=== PATIENT | female | born 1940 | race Caucasian/White ===

== ENCOUNTER 2016-10-09 14:10 | Emergency (ER) | payer MEDICARE, OTHER ==
[2016-10-09 14:05] VITALS: BP 119/54; PULSE 62; RESP 16; O2SAT 98
[~2016-10-09 14:10] MED LIST: ASPI-973 PO; ATOR20TA PO; CHOL10008 PO; HYDR12.55 PO; INSU100I13 SUBQ; LISI40TA PO; LORA0.5T PO; QUET25TA73 PO
--- NOTE | 2016-10-09 14:16 | ED.REPORT ---
HPI-General Illness Date of Service Oct 09, 2016 ED Provider: Ricky Gutierrez MD The patient is a 76 year old female with history of hypertension, hyperlipidemia , prior stroke, diabetes mellitus, and dementia, who was brought to the emergency department by EMS for agitated behavior. The patient has history of dementia and has recently been doing relatively well. Her family was able to take her our of the care facility in March because of how well she has been doing. Today she suddenly became very angry with her and started screaming and yelling at him. Her is unsure what she was upset about. The patient denies any physical complaints at this time. She has a history of similar outbursts and anger in the past thought related to her dementia. The states that he does not want her placed in a care facility but did not know what to do today because she was so upset. She has not had any recent head trauma or falling. She has not had any fevers or urinary symptoms. History is quite limited from the patient as she is demented. Nursing Notes Stated Complaint: DEMENTIA Chief Complaint: General Complaint Nursing Notes Reviewed: Yes Allergies: Coded Allergies: No Known Allergies (Verified , 11/10/15) Scheduled Aspirin (Aspirin) 81 Mg Tablet 81 MG PO DAILY Atorvastatin (Lipitor) 20 Mg Tablet 20 MG PO HS Cholecalciferol (Vitamin D3) (Vitamin D3) 1,000 Unit Tab.chew 1,000 UNIT PO DAILY Hydrochlorothiazide (Hydrochlorothiazide) 12.5 Mg Tablet 12.5 MG PO DAILY Insulin Glargine (Lantus U100 Solostar Insulin Pen) 100 Unit/1 Ml Insuln.pen 14 UNIT SUBQ DAILY Lisinopril (Lisinopril) 40 Mg Tablet 40 MG PO DAILY Quetiapine Fumarate (Quetiapine Fumarate) 25 Mg Tablet 12.5 MG PO HS Scheduled PRN Lorazepam (Lorazepam) 0.5 Mg Tablet 0.5 MG PO BID PRN PRN For Anxiety General Time Seen by MD: 14:12 Chief Complaint Altered mental status Hx Obtained From: Patient, Spouse, EMS Arrived By: Ambulance Sudden in Onset?: Yes Onset Occurred: 1 - 4 hours ago Symptom Duration: Since onset Severity: Current: No pain currently Severity: Maximum: No pain Recent Healthcare: No recent hospitalization Past Medical History Past Medical History Notes: Echocardiogram: Mild aortic regurgitation with EF 75-80% Past Medical History Breast cancer Alzheimer Dementia Reports: Diabetes mellitus, Hyperlipidemia, Hypertension, Stroke Past Surgical History mastectomy Resection of some type of abdominal cancer Reports: Appendectomy, Cholecystectomy, Hysterectomy Smoking History Never Smoker Social History Alcohol Use: Denies alcohol use Drug Use: Denies drug use Other Social History: Ambulatory Status Independent Review of Systems Full Review of Systems Constitutional: Denies: Chills, Fever Ears / Nose / Throat: Denies: Sore throat Respiratory: Denies: Non-productive cough, Shortness of breath Cardiovascular: Denies: Chest pain GI: Denies: Abdominal pain, Diarrhea, Nausea, Vomiting Psychiatric: Reports: Agitation, Change mental status Complete sys rev & neg: except as marked. Physical Exam Vital Signs Vital Signs Date Time Temp Pulse Resp B/P Pulse Ox O2 Delivery O2 Flow Rate FiO2 10/09/16 17:30 36.9 88 16 136/72 98 Room Air 10/09/16 14:05 37.1 62 16 119/54 98 Room Air Initial VS: Reviewed Skin: Warm, Dry, No cyanosis Psychiatric: Mood/affect normal, Behavior normal General/Constitutional: Awake, Alert, Cooperative Head / Eyes: Atraumatic, Normocephalic, PERRL, EOMI ENT: Atraumatic, Airway patent, Mucous membranes moist Neck: Atraumatic, Supple, Full range of motion, No swelling, Non-tender, No midline vertebral tend Respiratory / Chest: Atraumatic, Breath sounds NL, Breath sounds = bilat, No respiratory distress, No rales, No rhonchi, No wheezing Cardiovascular: Heart rate NL, Regular rhythm, Heart sounds NL, No murmurs, No rubs Abdomen: Atraumatic, Soft, Non-tender, No guarding, No rebound, BS normoactive , No distention Back: Atraumatic, Inspection NL, No midline vertebral tend Upper Extremities Upper Extremity / MS: No deformity, Neurologic intact, Vascular intact Lower Extremity / Pelvis / MS: No deformity, Neurologic intact, Vascular intact Neurologic: Speech NL, No motor deficits, No sensory deficits Mental Status: Positive: Disoriented to place, Disoriented to time Interpretation & Diagnostics Lab Results Interpretation Test 10/09/16 16:29 Urine Color Yellow (YELLOW) Urine Appearance Hazy (CLEAR,HAZY) Urine pH 5.5 (5.0-8.0) Urine Specific [place] 1.030 (1.003-1.035) Urine Protein Negativemg/dL (NEG,TRACE) Urine Glucose (UA) Negativemg/dL (NEGATIVE) Urine Ketones Negativemg/dL (NEGATIVE) Urine Occult Blood Negative (NEGATIVE) Urine Nitrite Negative (NEGATIVE) Urine Bilirubin Negative (NEGATIVE) Urine Urobilinogen 1.0mg/dL (NORMAL) Urine Leukocyte Esterase Small (NEGATIVE) Urine RBC 0-2/hpf (0-2) Urine WBC 0-5/hpf (0-5) Urine Epithelial Cells Many/hpf (NONE-MOD) Urine Crystals None seen (NONE SEEN) Urine Bacteria Few/hpf (NONE-FEW) Urine Hyaline Casts None/lpf (NONE) Urine Granular Casts None seen (NONE SEEN) Urine Waxy Casts None seen (NONE SEEN) Urine Red Blood Cell Casts None seen (NONE SEEN) Urine White Blood Cell Casts None seen (NONE SEEN) Urine Mucus Present (None Seen) Urine Trichomonas None seen (NONE SEEN) Urine Yeast None (NONE SEEN) Urinalysis Comment None Urine Culture Reflexed Indicated Re-Eval/Medical Decision Med Decision/Clinical Course The patient is a 76 year old female with history of hypertension, hyperlipidemia , prior stroke, diabetes mellitus, and dementia, who was brought to the emergency department by EMS for agitated behavior. The patient has history of dementia and has recently been doing relatively well. Her family was able to take her our of the care facility in March because of how well she has been doing. Today she suddenly became very angry with her and started screaming and yelling at him. Her is unsure what she was upset about. The patient denies any physical complaints at this time. She has a history of similar outbursts and anger in the past thought related to her dementia. The states that he does not want her placed in a care facility but did not know what to do today because she was so upset. She has not had any recent head trauma or falling. She has not had any fevers or urinary symptoms. History is quite limited from the patient as she is demented. Here in the emergency department the patient is afebrile, hemodynamically stable and in no apparent distress. Examination as above reveals no evidence of head trauma or traumatic injury. UA: Many epithelial cells, small leukesterase, negative nitrites, few bacteria - given that this was not a clean catch urine specimen this is unconvincing for a UTI. Patient was seen and evaluated by myself. Her behavior seems to be relatively baseline and in speaking more with her is not abnormal for her to have outbursts like this that he was not able to control her today. I considered medical etiologies of her symptoms and there is no evidence of head trauma. I do not feel that neuroimaging is immediately indicated and obtaining imaging would require sedating the patient. In the absence of any history of falling or objective evidence of head trauma I do not feel that the risks associated with sedation outweigh the benefits. Likewise, the patient would not be willing to consent to blood draw and based upon my evaluation with the patient I do not feel that laboratory studies would be of much benefit. The patient's is at the bedside and would like to take her home as she is now calm. We offered admission for placement in a memory care facility however they declined this and like to continue to take care of her at home. The patient's feels that he can safely do this. He is advised to bring her back at any time he is not able to safely care for her at home. They will continue to work with her primary care physician regarding the need for additional assistance. Prior to discharge follow-up and return precautions were reviewed in detail with the patient's who verbalized understanding and agreement with the plan. The patient was discharged in stable condition. Source of Hx: Old records, EMS, Family Time of Eval: 17:09 Re-Evaluation/Progress Note: Discussed plan for discharge. All questions were addressed. Consultation #1: Consulted With: asphalt worker Call Returned at: 14:52 Note: Discussed the patient's case with ED social service liaison. Consultation #2: Consulted With: asphalt worker Call Returned at: 16:28 Note: The patient can be discharged with her . Counseled Regarding: Diagnosis, Lab results, Need for follow-up, When/why to return to ED Discharge & Departure Primary Impression: Dementia Dementia type: unspecified type Dementia behavioral disturbance: without behavioral disturbance Qualified Code: F03.90 - Unspecified dementia without behavioral disturbance Additional Impressions: Agitation Acute situational disturbance Disposition: Home Discharge Condition All VS Reviewed: Yes Condition: Stable Additional Instructions: Thank you for entrusting us with Samra's care today. The urinalysis today is not convincing for a urinary tract infection. Followup with her primary care provider in the next 48 hours to discuss urine culture results. If the culture is positive she will need to be started on antibiotics. You should also discuss placement in memory care with her primary physician. If you feel like you are unable to take care of her you can bring her back at anytime. Scribe Attestation Portions of this note were transcribed by Ashley Noonan. I, Dr. Gutierrez personally performed the history, physical exam and medical decision-making; I reviewed and confirmed the accuracy of the information in the transcribed note. Signed by: Spencer Suazo, 10/09/2016 at 1730. Ricky Gutierrez MD Oct 09, 2016 14:16 Ashley Noonan Oct 09, 2016 14:52
[2016-10-09 16:56] LABS: APPEARANCE,URINE HAZY (CLEAR,HAZY); COLOR,URINE YELLOW (YELLOW); OCCULT BLOOD,URINE NEGATIVE (NEGATIVE); PH,URINE 5.5 (5.0-8.0)
[2016-10-09 17:30] VITALS: BP 136/72; PULSE 88; RESP 16; O2SAT 98
== END 2016-10-09 17:32 | disposition home or self-care (01) ==
LOC: SED 14:10
DX: F03.91 Unspecified dementia, unspecified severity, with behavioral disturbance (principal); R45.1 Restlessness and agitation; F43.0 Acute stress reaction; E11.9 Type 2 diabetes mellitus without complications; E78.5 Hyperlipidemia, unspecified; I10 Essential (primary) hypertension; Z86.73 Personal history of transient ischemic attack (TIA), and cerebral infarction without residual deficits; G30.9 Alzheimer's disease, unspecified; Z79.82 Long term (current) use of aspirin; Z79.4 Long term (current) use of insulin